=== PATIENT | male | born 1980 | race Caucasian/White ===

== ENCOUNTER 2023-09-16 17:11 | Emergency (ER) | payer BC, SELFPAY ==
[2023-09-16 17:11] VITALS: BP 162/108; BP 171/110; PULSE 93; PULSE 94; RESP 14; TEMP 37.2; O2SAT 100; O2SAT 97; BMI 31.8
--- NOTE | 2023-09-16 17:23 | EKG12_ITS ---
Test Reason : CHEST PAIN/PALP Blood Pressure : / mmHG Vent. Rate : 094 BPM Atrial Rate : 094 BPM P-R Int : 160 ms QRS Dur : 080 ms QT Int : 354 ms P-R-T Axes : 054 027 -05 degrees QTc Int : 442 ms Normal sinus rhythm Cannot rule out Inferior infarct , age undetermined Abnormal ECG Confirmed by Jovan Mesa ([id number]), editor dictionary ARTIS HILL ([id number]) on 09/18/2023 11:32:46 AM Referred By: JERONIMO MEMBRENO Confirmed By:Jovan Mesa
[2023-09-16] MEDS: Ondansetron 4 MG/2 ML Vial IV (18:06)
[2023-09-16 18:15] VITALS: BP 147/88; BP 154/110; BP 157/101; PULSE 82; PULSE 87
[2023-09-16 18:33] LABS: Absolute Neutrophil Count 4.3 X10^3/uL (2.0-7.7); Basophil# 0.05 X10^3/uL; Basophil% 0.7 % (0-1); Eosinophil# 0.07 X10^3/uL; Hematocrit 46.3 % (40-54); Hemoglobin 15.5 g/dL (13.0-16.5); Lymphocyte % 29.6 % (19-41); Mean Corp Hgb Conc 33.5 g/dL (32-36); Mean Corpuscular Hgb 31.6 pg (27.0-32.0); Mean Corpuscular Volume 94.5 fL (80-94); Monocyte# 0.52 X10^3/uL; Monocyte% 7.3 % (0-10); NRBC Flagged by Analyzer 0 % (0-5); Neutrophil # 4.33 X10^3/uL (2.7-7.7); Platelet Count 231 K/mm3 (150-450); RBC Distribution Width CV 12.3 % (11.6-14.6); RBC Distribution Width SD 42.6 fl (35.1-43.9); White Blood Count 7.1 K/mm3 (4.4-11.0)
[2023-09-16 18:41] LABS: Anion Gap 5 (5-15); BUN 11 mg/dL (7-18); BUN/Creat Ratio 12.6 RATIO (10-20); Calcium,Total 9.8 mg/dL (8.5-10.1); Chloride 106 mmol/L (98-107); Creatinine, Serum 0.87 mg/dL (0.70-1.30); EST Glomerular Filtration Rate 102 mL/min (>60); Est Glom Filt Rate - Afr Amer 124 mL/min (>60); Estimated Creatinine Clearance 124.98 ml/min; Glucose 92 mg/dL (74-106); Potassium 3.9 mmol/L (3.5-5.1); Sodium Level 139 mmol/L (136-145)
[2023-09-16 19:03] VITALS: BP 137/93; PULSE 80; RESP 15; O2SAT 98
--- NOTE | 2023-09-16 19:22 | EX.ED.DYSGE1 ---
HPI History of Present Illness Chief Complaint: Nausea/Vomiting Detail of Chief Complaint: Nausea dry heaves and head feeling warm Informant: patient Onset/Context/Timing Onset: Today (0200) Context: Sudden Onset Timing: Continuous Quality: Head feeling warm, continuous nausea intermittent dry heaves Location: Head and GI Current Severity: Mild Maximum Severity: Moderate Worsened by: Nothing Relieved by: Nothing Associated Symptoms Associated Symptoms: Does not feel well Narrative Narrative: patient is a 42-year-old male. He has no significant past medical history. Patient states he normally wakes up at 3:30 in the morning to get ready for work. He awoke this morning at 2 AM. He states his head felt warm he felt little sweaty felt nauseous and had dry heaves. His head is felt warm since 2 AM. He is felt nauseous since 2 AM. He denies fever but does endorse chills. His Tmax at home was 98.2. He denies double vision, blurred vision loss of vision denies ringing's ears or decreased hearing. He denies rhinorrhea, congestion postnasal drainage. Denies sore throat. He denies cough. He denies shortness of breath. He denies chest discomfort. He does complain of vague abdominal discomfort and nausea. He has had 1 episode of dry heaves. He denies diarrhea. He denies black or maroon stool. He denies dysuria, frequency, urgency or hematuria. He denies paresthesia, anesthesia motors. Has problems with balance or coordination. He denies neck pain or neck stiffness. Prior similar symptoms: Yes Recent Illness/Hospitalization: No PFSH PFSH Medical History no medical history no medical history Allergy/AdvReac Type Severity Reaction Status Date / Time nut - unspecified (nuts) Allergy Anaphylaxis Verified 09/16/23 17:21 Surgical History no surgical history no surgical history Social History (Updated 09/16/23 @ 19:[address] Raymond Dinh MD) household members: spouse and family Smoking Status: Never smoker ROS ROS ED Constitutional Constitutional ED: Reports chills and sweats; Denies fever(s) or subjective Eyes Eyes: Denies blurry vision, change in vision or diplopia ENT ENT ED: Denies ear pain, rhinorrhea or sore throat Cardiovascular Cardiovascular: Denies chest pain, orthopnea, palpitations or paroxysmal nocturnal dyspnea Respiratory/Chest Respiratory/Chest: Denies cough, dyspnea, dyspnea on exertion, orthopnea or paroxysmal nocturnal dyspnea Gastrointestinal Gastrointestinal: Reports abdominal pain and nausea; Denies constipation, diarrhea or melena Genitourinary Genitourinary ED: Denies dysuria, hematuria or urinary frequency Musculoskeletal Musculoskeletal: Denies arthralgias, back pain, myalgias or neck pain Integumentary Denies rash Neurologic Neurologic: Denies headache(s) or paresthesias Endocrine Endocrinology: Denies cold intolerance or heat intolerance Hematologic/Lymphatic Hematologic/Lymphatic: Reports systems reviewed and no addt'l complaints, except as documented and as per HPI Allergic/Immunologic Allergic/Immunologic ED: Denies mouth swelling, tongue swelling or urticaria EXAM Physical Exam Const Vital Signs: 09/16/23 17:11 09/16/23 17:11 09/16/23 18:15 Temperature 98.9 F Temperature Source Temporal Pulse Rate 93 94 Pulse Rate [Lying] 87 Pulse Rate [Sitting (for 1 minute prior to obtaining)] 87 Pulse Rate [Standing (for 1 minute prior to obtaining)] 82 Respiratory Rate 14 14 Blood Pressure 171/110 H 162/108 H Blood Pressure [Lying] 147/88 H Blood Pressure [Sitting (for 1 minute prior to obtaining)] 157/101 H Blood Pressure [Standing (for 1 minute prior to obtaining)] 154/110 H Blood Pressure Mean 130 126 Blood Pressure Mean [Lying] 107 Blood Pressure Mean [Sitting (for 1 minute prior to obtaining)] 119 Blood Pressure Mean [Standing (for 1 minute prior to obtaining)] 124 Pulse Ox 100 97 Oxygen Delivery Method Room Air Room Air 09/16/23 19:03 Temperature Temperature Source Pulse Rate 80 Pulse Rate [Lying] Pulse Rate [Sitting (for 1 minute prior to obtaining)] Pulse Rate [Standing (for 1 minute prior to obtaining)] Respiratory Rate 15 Blood Pressure 137/93 H Blood Pressure [Lying] Blood Pressure [Sitting (for 1 minute prior to obtaining)] Blood Pressure [Standing (for 1 minute prior to obtaining)] Blood Pressure Mean 107 Blood Pressure Mean [Lying] Blood Pressure Mean [Sitting (for 1 minute prior to obtaining)] Blood Pressure Mean [Standing (for 1 minute prior to obtaining)] Pulse Ox 98 Oxygen Delivery Method Room Air Positive well nourished and well developed Constitutional Narrative: Orthostatic vital signs were negative. General Appearance ED: well developed and NAD; Negative for pallor HEENT Reports moist mucous membranes trauma Eyes PERRL and EOMs intact bilaterally General Eye ED: Negative for pale conjunctiva or scleral icterus Neck no lymphadenopathy and no JVD Chest Wall inspection of chest normal and palpation of chest normal Resp normal respiratory effort and clear to auscultation bilaterally Cardio regular rate, S1 normal heart sound, S2 normal heart sound and no murmurs GI normal to inspection, nondistended, normoactive bowel sounds, non-tender, non-distended and no masses; Negative for hepatosplenomegaly Auscultation: normoactive bowel sounds Palpation: soft Extremity normal to inspection General Extremety ED: Negative for edema or tenderness General Extremity: Negative for edema Neuro oriented x3, CN's II-XII intact bilaterally and no sensory deficits noted Motor Exam: strength 5/5 throughout Psych mental status grossly normal Skin no rashes or lesions noted, no wounds and skin turgor normal General Skin Exam: elasticity normal; Negative for jaundice or pallor MDM MDM MDM Narrative Medical decision making narrative: Patient with vague symptoms. This may represent a viral illness. Will obtain CBC to assess white count and differential. Basic metabolic panel to assess electrolytes and renal function. Orthostatic vitals were obtained and negative. Patient and at 1919 were told that his blood work is unremarkable. The cause of his symptoms is unknown. Lab Data Labs: Laboratory Results - last 24 hr 09/16/23 18:14 WBC 7.1 RBC 4.90 Hgb 15.5 Hct 46.3 MCV 94.5 H MCH 31.6 MCHC 33.5 RDW Std Deviation 42.6 RDW Coeff of Deondre 12.3 Plt Count 231 MPV 10.0 Immature Gran % (Auto) 0.400 Neut % (Auto) 61.0 Lymph % (Auto) 29.6 [place] % (Auto) 7.3 Eos % (Auto) 1.0 Baso % (Auto) 0.7 Absolute Neuts (auto) 4.3 Absolute Lymphs (auto) 2.10 Nucleated RBC % 0 Sodium 139 Potassium 3.9 Chloride 106 Carbon Dioxide 28.0 Anion Gap 5 BUN 11 Creatinine 0.87 Estim Creat Clear Calc 124.98 Est GFR (MDRD) Af Amer 124 Est GFR (MDRD) Non-Af 102 BUN/Creatinine Ratio 12.6 Glucose 92 Calcium 9.8 Discharge Plan Triage Chief Complaint: Nausea/Vomiting ED Provider: Dinh,Raymond Dx/Rx/DC Orders Clinical Impression: Nausea, Elevated blood-pressure reading, without diagnosis of hypertension Instructions: ED Hypertension, To Be Confirmed, ED Viral Syndrome (Adult) Primary Care Provider: Edis Sharma Referrals: Edis Sharma DO [Primary Care Provider] - 1 Week Print Language: Estonian Disposition Disposition: Home, Self Care
[2023-09-16 19:38] VITALS: BP 136/88; PULSE 75; RESP 12; TEMP 36.4; O2SAT 97
== END 2023-09-16 19:38 | disposition home or self-care (01) ==
PROVIDERS: Emergency Provider Emergency Medicine; PCP Family Medicine; Visit Provider Emergency Medicine
DX: R11.0 Nausea (principal); R03.0 Elevated blood-pressure reading, without diagnosis of hypertension; R10.9 Unspecified abdominal pain
CPT/HCPCS: 80048; 85025; 93005; 96374; 99284; A4216; J2405

== ENCOUNTER → 2023-12-17 | Outpatient (CLI) | payer BC, SELFPAY ==
[2023-12-17 16:58] LABS: Cholesterol 217 mg/dL (200); High Density Lipoprotein 43 mg/dL; Triglycerides 397 mg/dL; Very Low Density Lipoprotein 79 mg/dL (5-40)
== END | disposition home or self-care (01) ==
LOC: BIMLAB 15:55
PROVIDERS: PCP Family Medicine; Visit Provider Family Medicine
DX: Z00.00 Encounter for general adult medical examination without abnormal findings (principal)
CPT/HCPCS: 36415; 80061